=== PATIENT | female | born 2000 | race Caucasian/White ===

== ENCOUNTER 2024-01-14 15:16 | Emergency (ER) | payer MEDICAID, OTHER ==
[~2024-01-14] VITALS: Ht 160 cm; Wt 90.7 kg
[~2024-01-14 15:16] MED LIST: tylenol
[2024-01-14 15:17] VITALS: BP 141/72; PULSE 94; RESP 18; TEMP 98.2; O2SAT 99
[2024-01-14] MEDS: diphenhydrAMINE 50 MG CAP PO ONE (15:50)
[2024-01-14] MEDS: ONDANSETRON 4 MG ODT PO ONE (15:50)
[2024-01-14] MEDS ORDERED: EPIN1KIT31 IM (16:15)
[2024-01-14 16:42] VITALS: BP 141/72; PULSE 94; RESP 18; TEMP 98.2; O2SAT 99
== END 2024-01-14 16:40 | disposition home or self-care (01) ==
LOC: MED 15:16
DX: T78.49XA Other allergy, initial encounter (principal); R03.0 Elevated blood-pressure reading, without diagnosis of hypertension; Z91.018 Allergy to other foods; X58.XXXA Exposure to other specified factors, initial encounter
CPT/HCPCS: 99283; Q0162; Q0163